=== PATIENT | male | born 1975 | race Caucasian/White ===

== ENCOUNTER → 2018-05-26 16:18 | Outpatient (CLI) | payer BC, SELFPAY ==
[2018-05-26 18:13] LABS: Anion Gap 14.1 mEq/L (5-15); Blood Urea Nitrogen 17 mg/dL (7-18); Calcium 9.6 mg/dL (8.5-10.1); Carbon Dioxide 30 mmol/L (21.0-32.0); Chloride 104 mmol/L (98-107); Creatinine,Serum 1.05 mg/dL (0.70-1.30); Estimated Glomerular Filt Rate 77 ml/min (>60); GFR (African American) 94 ML/MIN (>60); Glucose 102 mg/dL (74-106); Potassium 4.1 mmoL/L (3.5-5.1); Sodium 144 mmol/L (136-145)
== END ==
PROVIDERS: PCP Internal Medicine Adolescent Medicine; Visit Provider Internal Medicine Adolescent Medicine
DX: I10 Essential (primary) hypertension (principal)
CPT/HCPCS: 36415; 80048

== ENCOUNTER 2018-08-10 19:40 | Observation (INO) ==
--- NOTE | 2018-08-10 20:06 | Emergency Department Note ---
ED Disposition Clinical Impression: Fever Qualifiers: Encounter type: subsequent encounter Diverticulitis large intestine Qualifiers: Diverticulitis bleeding: without bleeding Disposition: Admitted as Observation Condition on Discharge: Good Referrals: Zaheer Lorenzo MD [Primary Care Provider] - Time of Disposition: 20:08 - Critical Care Critical Care Time: No Attestation: On 08/10/18, the high probability of a clinically significant, sudden or life threatening deterioration of the following system(s) required my full and direct attention, intervention and personal management. The time I documented below is in addition to time spent performing reported procedures but includes the following listed in this critical care notation. Medical Decision Making - Medical Records Medical records reviewed: Yes: I reviewed the patient's medical records. - Damaso Inquiry Pt receiving controlled substance: No Damaso was queried for this patient: No Vital Signs: 08/10/18 19:43 Temperature 101.7 F H Temperature Source Oral Pulse Rate [Right Brachial] 127 H Respiratory Rate 18 Blood Pressure [Right Arm] 133/68 Blood Pressure Mean [Right Arm] 89 Blood Pressure Source [Right Arm] Automatic Cuff Blood Pressure Position [Right Arm] Sitting 02 Sat by Pulse Oximetry 96 Oxygen Delivery Method Room Air Orders (Tests/Meds): ED MEDICATIONS Generic Name Dose Route Start Last Admin Trade Name Freq PRN Reason Stop Dose Admin Sodium Chloride 1,000 mls @ 999 mls/hr 08/10/18 20:00 Sod Chlor 0.9% 1000ml Bag IV 08/10/18 22:00 .Q1H1M ERIC Discontinued Medications Generic Name Dose Route Start Last Admin Trade Name Freq PRN Reason Stop Dose Admin Acetaminophen 1,000 mg 08/10/18 19:49 Tylenol 500mg Tablet PO 08/10/18 19:50 ONCE ONE Ondansetron HCl 4 mg 08/10/18 19:49 Zofran 4mg/2ml Vial IV 08/10/18 19:50 ONCE ONE ORDERS Category Date Time Status Complete Blood Count Auto Diff Stat Lab 08/10/18 19:48 Ordered Comprehensive Metabolic Panel Stat Lab 08/10/18 19:48 Ordered General Adult HPI - General Chief complaint: Fever Stated complaint: fever Time Seen by Provider: 08/10/18 20:02 Mode of Arrival: Family Vehicle Limitations: No Limitations Description of Symptoms (Recalled from ER Triage Doc. by RN): Pt is here for a fever after being here earlier for abd pain. States he is not in any more pain, but he took a norco 10 and motrin 400mg about an hr ago - History of Present Illness HPI narrative: evaluated by me earlier today. Diagnosis of diverticulitis without any signfiicant peritoneal findings, normal wbc, temp only 99.3 Discussed case with his pcp, decided on outpatient therapy with plans to see Dr. Bj martinez at 345 He spiked a fever at home and now returns for admission. - Related Data Home Medications Medication Instructions Recorded Confirmed aspirin 81 mg tablet,delayed 81 mg PO DAILY tab 10/07/17 08/10/18 release meloxicam 7.5 mg tablet 7.5 mg PO BID tab 10/07/17 08/10/18 Amlodipine Besylate 10 mg PO DAILY 08/10/18 08/10/18 Hydrocodone/Acetaminophen [[place] 1 each PO Q4-6H 08/10/18 08/10/18 10-325 Tablet] Lisinopril [Lisinopril 10mg Tab] 10 mg PO DAILY 08/10/18 08/10/18 levoFLOXacin [Levaquin 500mg 500 mg PO DAILY 08/10/18 08/10/18 tab] metroNIDAZOLE [Flagyl 500mg 500 mg PO Q8H 08/10/18 08/10/18 Tablet] Allergies Allergy/AdvReac Type Severity Reaction Status Date / Time Penicillins Allergy Intermediate I-ITCHING Verified 08/10/18 13:02 Pertussis Vaccines Allergy Intermediate FLUSHING Verified 08/10/18 13:02 [facility] History - Hepatitis A Screen Drug use history?: No High risk sexual behaviors?: No History of sexually transmitted infection?: No Currently employed?: No Childcare worker?: No Do you have indoor plumbing?: Yes Do you have electricity?: Yes Attestation statement:: This patient has been screened for Hepatitis A risk factors. Medical History: Reports:: Asthma Denies:: Diabetes Mellitus Type 1, Diabetes Mellitus Type 2 Other Medical History: Reports: Arthritis Laterality Cases: Bilateral: Tonsillectomy Other Surgeries: Yes: Other Amputation: No Fractures: Yes Comment: RIGHT SIDED SCROTAL EXCISION FOR HIDRADENITIS - Social History Smoking Status: Current every day smoker Tobacco Type: cigarettes # Packs/Day (cigarettes): 1 Alcohol Intake: current Alcohol Intake Frequency:: 0-2 drinks per day Substance Use Type: denies use Occupational Status: employed - Psychiatric History Expresses thoughts of harming self/others: None Suicide Plan Description: No Plan Family Hx:: Asthma, Cancer, Hyperlipidemia, Diabetes, Hypertension Comment: PROSTATE CANCER, ARTHRITIS,TB,HEART PROBLEMS,TROUBLE WITH ANESTHESIA ROS Obtained: Yes All systems reviewed & no additional complaints - Constitutional Constitutional: Reports system reviewed and no additional complaints, except as docu, Reports chills, Reports fever(s) - Eyes Eyes: Reports system reviewed and no additional complaints, except as docu, Reports change in vision - Cardiovascular Cardiovascular: Reports system reviewed and no additional complaints, except as docu, Denies chest pain, Denies chest pain at rest, Denies chest pain with activity, Denies dyspnea - Respiratory Respiratory: Yes system reviewed and no additional complaints, except as docu, No chest congestion, No cough, No non-productive cough - Gastrointestinal Gastrointestingal: Reports: system reviewed and no additional complaints, except as docu, abdominal pain, cramping. Denies: nausea, vomiting - Musculoskeletal Musculoskeletal: Reports system reviewed and no additional complaints, except as docu, Denies joint pain, Denies muscle aches, Denies neck pain - Integumentary/Breasts Skin/Breast: Reports system reviewed and no additional complaints, except as docu, Denies rash - Neurologic Neurologic: Reports system reviewed and no additional complaints, except as docu, Denies syncope, Denies tingling, Denies tremor(s) - Hematologic/Lymphatic Henatologic/Lymphatic: Reports system reviewed and no additional complaints, except as docu, Denies easy bleeding, Denies easy bruising, Denies lymphadenopathy Physical Exam - General General appearance: alert, in no apparent distress - Head Head exam: atraumatic, normocephalic, normal inspection - Eye Eye exam: Present: normal appearance, PERRL, EOMI - ENT ENT exam: Present: normal exam, normal oropharynx, mucous membranes moist, TM's normal bilaterally, normal external ear exam - Neck Neck exam: Present: normal inspection, full ROM, trachea midline. Absent: meningismus, lymphadenopathy - Chest Chest inspection: Present: normal inspection, symmetric chest wall rise. Absent: tenderness - Respiratory Respiratory exam: Present: normal lung sounds bilaterally. Absent: respiratory distress - Cardiovascular Cardiovascular exam: Present: regular rate - Abdominal Exam Abdominal exam: Present: soft, tenderness. Absent: distention, rigidity, mass - Extremities Exam Extremities exam: Present: normal inspection, full ROM, normal capillary refill. Absent: calf tenderness - Back Exam Back exam: Present: normal inspection. Absent: tenderness - Neurological Exam Neurological exam: Present: alert, oriented X3 - Psychiatric Psychiatric exam: Present: normal affect, normal mood - Skin Skin exam: Present: warm, dry, intact, normal color - Lymphatic Lymphatic Findings: no adenopathy
[2018-08-10 20:15] LABS: Basophils % 0.3 % (0.1-2.0); Eosinophils # 0.1 K/mm3 (0.0-0.4); Mean Corpuscular Volume 97.7 fl (80-94); Platelet Count 151 K/mm3 (142-424)
[2018-08-10 20:21] LABS: Eosinophils % 0.6 % (0.1-12.0); Hematocrit 42.8 % (42.0-52.0); Lymphocytes % 9.3 % (10-50); Mean Corpuscular HGB Conc 34.1 g/dL (31.8-35.4); Mean Corpuscular Hemoglobin 33.4 pg (27.0-31.2); Mean Platelet Volume 7.9 fl (7.4-10.4); Monocytes # 0.8 K/mm3 (0.1-1.0); Monocytes % 7.6 % (1.7-9.3); Neutrophils % 82.1 % (37.0-80.0); Red Blood Count 4.38 M/mm3 (4.60-6.20)
[2018-08-10 20:24] LABS: Hemoglobin 14.6 g/dL (14.1-18.0)
[2018-08-10 20:27] LABS: Albumin Level 3.8 gm/dL (3.4-5.0); Albumin/Globulin Ratio 1.3 (1.1-1.8); Anion Gap 14.8 mEq/L (5-15); Bilirubin,Total 0.8 mg/dL (0.2-1.0); Globulin 2.9 gm/dl (1.3-3.2); Potassium 3.8 mmoL/L (3.5-5.1); Total Protein,Serum 6.7 gm/dL (6.4-8.2)
[2018-08-10 20:44] LABS: Calcium 8.4 mg/dL (8.5-10.1)
--- NOTE | 2018-08-11 07:33 | Pharmacy Consult Notes ---
[facility] Pharmacy VTE Monitoring - Patient Demographics Admission date: 08/10/18 Report Date: 08/11/18 Time: 07:33 Allergies/Adverse Reactions: Patient Allergies Penicillins Allergy (Intermediate, Verified 08/10/18 13:02) I-ITCHING Pertussis Vaccines Allergy (Intermediate, Verified 08/10/18 13:02) FLUSHING Height: 1.78 m Weight: 103.646 kg Patient Problems: Current Active Problems Diverticulitis large intestine (Acute) Fever (Acute) - VTE Risk Labs: VTE Related Lab Results Hgb 14.6 g/dL (14.1-18.0) D 08/10/18 20:07 Hct 42.8 % (42.0-52.0) 08/10/18 20:07 Plt Count 151 K/mm3 (142-424) 08/10/18 20:07 BUN 14 mg/dL (7-18) 08/10/18 20:07 Creatinine 1.22 mg/dL (0.70-1.30) 08/10/18 20:07 Estimated Creat Clear 117 mL/min (50-200) 08/10/18 20:07 Was VTE Risk Assessment Performed: Yes VTE Score: 5 VTE Risk Level: Low Risk - Prophylaxis VTE Prophylaxis Ordered?: Yes Types of VTE Prophylaxis: TEDS Knee High Location of Applied Device: Bilateral Lower Extremeties - VTE Diagnosis Confirmed Treatment or plan recommended: Continue Current Treatment
[2018-08-11 07:39] LABS: Anion Gap 12.8 mEq/L (5-15); Basophils % 0.2 % (0.1-2.0); Calcium 8.8 mg/dL (8.5-10.1); Eosinophils # 0.1 K/mm3 (0.0-0.4); Eosinophils % 0.5 % (0.1-12.0); Hemoglobin 14.2 g/dL (14.1-18.0); Lymphocytes % 9.7 % (10-50); Mean Corpuscular Hemoglobin 32.8 pg (27.0-31.2); Mean Corpuscular Volume 99.5 fl (80-94); Mean Platelet Volume 8.1 fl (7.4-10.4); Monocytes # 0.7 K/mm3 (0.1-1.0); Monocytes % 6.6 % (1.7-9.3); Neutrophils # 8.6 K/mm3 (1.8-7.8); Platelet Count 138 K/mm3 (142-424); Potassium 3.8 mmoL/L (3.5-5.1); Red Blood Count 4.32 M/mm3 (4.60-6.20); White Blood Count 10.4 K/mm3 (4.8-10.8)
--- NOTE | 2018-08-11 08:37 | History & Physical Report ---
*Admission Date: 08/10/18 *Chief complaint: acute onset abdominal pain *History of present illness: Mr. Jacobo is a 42-year-old man with history of hypertension who presented to the ER yesterday with acute onset of abdominal pain in the right lower quadrant. He was initially assessed, found to have diverticulitis, initiated on oral antibiotics and discharged home. Upon returning home he developed fever causing him to return back to the ER. He was at this time that he was admitted due to his clinical status change. He reports yesterday he got up to go the bathroom and noticed acute worsening of pain in the right side of his abdomen, he was concerned for a kidney stone or something else. In the ER he was scanned with identification of an inflamed diverticulum. Also noted to be tachycardic and febrile. Stated he had had a looser stool but no umu diarrhea. No vomiting. Denies shortness of breath, chest pain, palpitations, blood in stools. Has never had an episode of this before. Made n.p.o. on admission, has had bowel rest all night. [facility] History I have reviewed the patient's past medical history: Yes Medical History: Reports:: Asthma, Hyperlipidemia, Hypertension, MRSA Denies:: Cancer, Diabetes Mellitus Type 1, Diabetes Mellitus Type 2 Have you ever received a pneumonia vaccine?: No Have you received a flu vaccine this season?: No Other Medical History: Reports: Arthritis Laterality Cases: Bilateral: Tonsillectomy Other Surgeries: Yes: Hernia Repair, Other (Scrotal surg x4) Amputation: No Fractures: Yes - *Social History Educational Level: Completed College Smoking Status: Current every day smoker Tobacco Type: cigarettes # Packs/Day (cigarettes): 1 Alcohol Intake: current Alcohol Intake Frequency:: 0-2 drinks per day Substance Use Type: denies use Occupational Status: employed Housing: house Household Members: spouse, children Travel in the last 8 weeks: None - Psychiatric History Expresses thoughts of harming self/others: None Suicide Plan Description: No Plan *Family Hx:: Asthma, Cancer, Diabetes, Hyperlipidemia, Hypertension, Stroke Review of Systems - Review of Systems Review of systems:: pertinent systems reviewed and negative unless documented below - *Neurologic Denies fainting, Denies tingling, Denies tremor(s) Meds Home Medications Medication Instructions Recorded Confirmed Type aspirin 81 mg tablet,delayed 81 mg PO DAILY tab 10/07/17 08/10/18 History release meloxicam 7.5 mg tablet 7.5 mg PO BID tab 10/07/17 08/10/18 History Amlodipine Besylate 10 mg PO DAILY 08/10/18 08/10/18 History Lisinopril [Lisinopril 10mg Tab] 10 mg PO DAILY 08/10/18 08/10/18 History levoFLOXacin [Levaquin 500mg 500 mg PO DAILY 08/10/18 08/10/18 History tab] metroNIDAZOLE [Flagyl 500mg 500 mg PO Q8H 08/10/18 08/10/18 History Tablet] Varenicline Tartrate [Chantix 1mg 1 mg PO BID 08/11/18 08/11/18 History tablet] Allergies Allergy/AdvReac Type Severity Reaction Status Date / Time Penicillins Allergy Intermediate I-ITCHING Verified 08/10/18 13:02 Pertussis Vaccines Allergy Intermediate FLUSHING Verified 08/10/18 13:02 Exam Vital signs and Labs for Last 24 Hours: Temp Pulse Resp BP Pulse Ox 100.3 F H 93 H 18 126/60 96 08/11/18 07:37 08/11/18 07:37 08/11/18 07:37 08/11/18 07:37 08/11/18 07:37 Laboratory Results - last 24 hr 08/10/18 20:07: WBC 11.0 H, RBC 4.38 L, Hgb 14.6 D, Hct 42.8, MCV 97.7 H, MCH 33.4 H, MCHC 34.1, RDW 13.0, Plt Count 151, MPV 7.9, Neut % (Auto) 82.1 H, Lymph % (Auto) 9.3 L, [place] % (Auto) 7.6, Eos % (Auto) 0.6, Baso % (Auto) 0.3, Neut # (Auto) 9.0 H, Lymph # (Auto) 1.0, [place] # (Auto) 0.8, Eos # (Auto) 0.1, Baso # (Auto) 0.0 08/10/18 20:07: Sodium 136, Potassium 3.8, Chloride 101, Carbon Dioxide 24, Anion Gap 14.8, BUN 14, Creatinine 1.22, Estimated Creat Clear 117, Estimated GFR 65, Est GFR ( Amer) 79, Glucose 135 H D, Calcium 8.4 L D, Total Bilirubin 0.8, AST 16 D, ALT 38, Alkaline Phosphatase 64, Total Protein 6.7, Albumin 3.8 D, Globulin 2.9, Albumin/Globulin Ratio 1.3 08/11/18 07:00: WBC 10.4, RBC 4.32 L, Hgb 14.2, Hct 43.0, MCV 99.5 H, MCH 32.8 H , MCHC 33.0, RDW 13.0, Plt Count 138 L, MPV 8.1, Neut % (Auto) 83.0 H, Lymph % (Auto) 9.7 L, [place] % (Auto) 6.6, Eos % (Auto) 0.5, Baso % (Auto) 0.2, Neut # (Auto) 8.6 H, Lymph # (Auto) 1.0, [place] # (Auto) 0.7, Eos # (Auto) 0.1, Baso # (Auto) 0.0 08/11/18 07:00: Sodium 138, Potassium 3.8, Chloride 103, Carbon Dioxide 26, Anion Gap 12.8, BUN 11, Creatinine 1.00, Estimated Creat Clear 141, Estimated GFR 82, Est GFR ( Amer) 99 D, Glucose 108 H, Calcium 8.8 I & O for Last 24 hours: Intake & Output 08/08/18 08/09/18 08/10/18 08/11/18 23:59 23:59 23:59 23:59 Intake Total 1538 / 1538 Output Total 1550 / 1550 Balance - Weight 103.646 kg 103.646 kg - Constitutional mild distress, obese - *Routine HEENT Exam Head: Present: normocephalic, atraumatic Eye: Present: EOMI, PERRL ENT: Present: mucous membranes moist - *Routine Neck Exam Present: supple. Absent: lymphadenopathy - *Routine Respiratory Exam Present: CTA bilaterally. Absent: rhonchi, wheezes, crackles - *Routine Cardiovascular Exam Present: RRR, Normal S1, Normal S2. Absent: murmur - *Routine Abdominal Exam Present: soft, tenderness (Most prominent right lower abdomen, no rebound). Absent: firm - *Routine Rectal Exam Patient deferred: visual exam - *Routine Exam Patient deferred: penile exam - *Routine Extremities Exam Absent: cyanosis, clubbing, edema - *Routine Skin Exam Present: intact. Absent: cyanosis, erythema - *Routine Neurological Exam Present: alert, oriented X3. Absent: altered mental status Assessment and Plan (1) Hypertension Current visit: Yes Status: Chronic Qualifiers: Hypertension type: essential hypertension Qualified Code(s): I10 - Essential (primary) hypertension Category: Medical Code(s): I10 - Essential (primary) hypertension Continue home medications (2) Diverticulitis large intestine Current visit: Yes Status: Acute Qualifiers: Diverticulitis bleeding: without bleeding Diverticulitis complication: without perforation or abscess Qualified Code(s): K57.32 - Diverticulitis of large intestine without perforation or abscess without bleeding Category: Medical Code(s): K57.32 - Diverticulitis of large intestine without perforation or abscess without bleeding Initiated on IV antibiotics and bowel rest -Tolerating Levaquin and Flagyl -Advance diet today to clear liquid this morning with plan for full liquid by lunch if tolerates correct -If able to maintain p.o. hydration and tolerate p.o. antibiotics likely discharge home in the morning (3) Fever Current visit: Yes Status: Acute Qualifiers: Encounter type: subsequent encounter Category: Medical Code(s): R50.9 - Fever, unspecified Secondary to infection, defervesced overnight
--- NOTE | 2018-08-12 08:25 | Discharge Summary ---
General - General Admission date:: 08/10/18 Discharge date: 08/12/18 HPI HPI: Mr. Jacobo is a 42-year-old man with history of hypertension who presented to the ER yesterday with acute onset of abdominal pain in the right lower quadrant. He was initially assessed, found to have diverticulitis, initiated on oral antibiotics and discharged home. Upon returning home he developed fever causing him to return back to the ER. He was at this time that he was admitted due to his clinical status change. He reports yesterday he got up to go the bathroom and noticed acute worsening of pain in the right side of his abdomen, he was concerned for a kidney stone or something else. In the ER he was scanned with identification of an inflamed diverticulum. Also noted to be tachycardic and febrile. Stated he had had a looser stool but no umu diarrhea. No vomiting. Denies shortness of breath, chest pain, palpitations, blood in stools. Has never had an episode of this before. Made n.p.o. on admission, has had bowel rest all night. Hospital Course Hospital Course: Was admitted, placed on intravenous levofloxacin and metronidazole, tolerated this well, and improved very nicely. Diet yesterday and tolerated oral feeding well with minimal pain. This morning was able to eat a pork chop and hashbrowns. No vomiting. No abdominal pain. Plan will be to discharge home. He has 6-day follow-up scheduled he previous prescription for quinolone and metronidazole antibiotic from his ER visit before he was admitted, and he will begin taking these as directed. We discussed a low residue diet. Objective Vital signs: Temp Pulse Resp BP Pulse Ox 100.2 F H 105 H 18 109/82 L 94 L 08/12/18 07:32 08/12/18 07:32 08/12/18 07:32 08/12/18 07:32 08/12/18 07:32 Narrative: Patient is alert. Pleasant. Talkative. Oriented x3. Cardiopulmonary exam unremarkable. Heart rate regular. Good distal perfusion. Abdomen soft, nontender and normal bowel sounds. No edema or clubbing. DS: Diagnosis - Discharge Diagnosis (1) Hypertension Status: Chronic (2) Diverticulitis large intestine Status: Acute (3) Fever Status: Resolved Discharge Plan - Patient Discharge Instructions ACTIVITY: Limited activity DIET: other (Residue diet) Patient Instructions: DI for Diverticulitis - Follow up Plan Follow up with: Zaheer Lorenzo MD [Primary Care Provider] - 08/18/18 Disposition: Home, Self-Halfway Medications: Home Medications Medication Instructions Recorded Confirmed Type aspirin 81 mg tablet,delayed 81 mg PO DAILY tab 10/07/17 08/10/18 History release meloxicam 7.5 mg tablet 7.5 mg PO BID tab 10/07/17 08/10/18 History Amlodipine Besylate 10 mg PO DAILY 08/10/18 08/10/18 History Lisinopril [Lisinopril 10mg Tab] 10 mg PO DAILY 08/10/18 08/10/18 History levoFLOXacin [Levaquin 500mg 500 mg PO DAILY 08/10/18 08/10/18 History tab] metroNIDAZOLE [Flagyl 500mg 500 mg PO Q8H 08/10/18 08/10/18 History Tablet] Varenicline Tartrate [Chantix 1mg 1 mg PO BID 08/11/18 08/11/18 History tablet] Prescriptions/Medication Reconciliation: Continue meloxicam 7.5 mg tablet 7.5 mg PO BID tab aspirin 81 mg tablet,delayed release 81 mg PO DAILY tab metroNIDAZOLE [Flagyl 500mg Tablet] 500 mg PO Q8H levoFLOXacin [Levaquin 500mg tab] 500 mg PO DAILY Amlodipine Besylate 10 mg PO DAILY Lisinopril [Lisinopril 10mg Tab] 10 mg PO DAILY Varenicline Tartrate [Chantix 1mg tablet] 1 mg PO BID
== END 2018-08-12 09:34 | disposition home or self-care (01) | DRG 392 ==
LOC: 2ND 19:40 → ER 19:40 → INTOOBSV 21:00 → OBSVTOIN 21:00 → 2ND 21:01
PROVIDERS: ADMIT Family Medicine; ATTEND Internal Medicine Adolescent Medicine
CPT/HCPCS: 36415; 80048; 80053; 85025; 96365; 99284; G0378; J1956; J2405

== ENCOUNTER 2020-06-26 09:10 | Emergency (ER) | payer BC, SELFPAY ==
[2020-06-26 09:10] VITALS: BP 131/86; PULSE 95; RESP 14; TEMP 37.1; O2SAT 98; BMI 30.8
--- NOTE | 2020-06-26 09:37 | HMH.EDUTC ---
[facility] [place] Disposition Clinical Impression: Polycythemia, Viral syndrome Disposition: Home, Self-Care Condition on Discharge: Good Instructions: DI for Viral Syndrome, DI for Primary Polycythemia Additional Instructions: Follow up with your primary care doctor regarding your elevated hemoglobin. You need to quit smoking. You should take a baby aspirin until you see your doctor, then follow his recommendations from there. Take the zofran for nausea. GO TO THE ER FOR ANY WORSENING SYMPTOMS OR CONCERNS, ESPECIALLY ANY WORSENING ABDOMINAL PAIN, FEVER, CHILL,ETC. Prescriptions: Ondansetron [Zofran 4mg ODT] 4 mg PO Q8HP PRN #12 tab.rapdis PRN Reason: Nausea Transmission Status: Received by [facility] Referrals: Hank Aguila MD [Primary Care Provider] - Forms: Work/School Release Time of Disposition: 11:00 Medical Decision Making - Medical Records Medical records reviewed: No: I reviewed the patient's medical records. - Damaso Inquiry Pt receiving controlled substance: No Vital Signs: 06/26/20 09:10 06/26/20 11:01 Temperature 98.7 F 98.7 F Temperature Source Oral Pulse Rate 95 H Pulse Rate [Right Brachial] 95 H Respiratory Rate 14 14 Blood Pressure 131/86 Blood Pressure [Right Arm] 131/86 Blood Pressure Mean [Right Arm] 101 Blood Pressure Source [Right Arm] Automatic Cuff Blood Pressure Position [Right Arm] Sitting 02 Sat by Pulse Oximetry 98 Oxygen Delivery Method Room Air - Lab Data Lab Results 06/26/20 10:10: WBC 10.5, RBC 5.60, Hgb 19.3 H*, Hct 55.4 H, MCV 99.0 H, MCH 34.6 H, MCHC 34.9, RDW 13.5, Plt Count 166, MPV 8.5, Neut % (Auto) 76.6, Lymph % (Auto) 14.8, [place] % (Auto) 6.3, Eos % (Auto) 1.5, Baso % (Auto) 0.7, Neut # (Auto) 8.0 H, Lymph # (Auto) 1.6, [place] # (Auto) 0.7, Eos # (Auto) 0.2, Baso # (Auto) 0.1 06/26/20 10:10: Sodium 137, Potassium 4.3, Chloride 102, Carbon Dioxide 24, Anion Gap 15.3 H, BUN 13, Creatinine 0.90, Estimated Creat Clear 144, Estimated GFR 92, Est GFR ( Amer) 111, Glucose 110 H, Calcium 9.8, Total Bilirubin 0.9, AST 41, ALT 30, Alkaline Phosphatase 69, Total Protein 8.0, Albumin 5.1 H, Globulin 2.9, Albumin/Globulin Ratio 1.8, Amylase 75, Lipase 146 Result diagrams: 06/26/20 10:10 06/26/20 10:10 Orders (Tests/Meds): ORDERS Category Date Time Status Covid-19 Nasal PCR Sendout Wan Routine Lab 06/26/20 09:26 Received [facility] [place] HPI - General Stated complaint: stomach pain Time Seen by Provider: 06/26/20 09:37 Mode of Arrival: Ambulatory Source of Information: Patient Limitations: No Limitations Description of Symptoms (Recalled from Triage Doc. by RN): PATIENT C/O NAUSEA AND DIARRHEA THAT STARTED YESTERDAY. HE BELIEVES THAT HE ATE A BAD PORKCHOP HEENT Symptoms (Recalled from RN notes): No Resp Symptoms (Recalled from RN notes): No Skin Symptoms (Recalled from RN notes): No MS Symptoms (Recalled from RN notes): No Functional Status (Recalled from RN notes): WNL - History of Present Illness Provider Complaint: He c/o gi upset since yesterday. He has had nausea, abdominal cramping, and diarrhea. He denies any fever, chills, body aches. He thinks that he might have food poisoning, but other people at the same meals that he has and he is the only one that is sick. - Related Data Home Medications Medication Instructions Recorded Confirmed aspirin 81 mg tablet,delayed 81 mg PO DAILY tab 10/07/17 12/13/19 release calcium citrate 315 mg 1 tab PO DAILY 12/22/18 12/13/19 calcium-vitamin D3 6.25 mcg (250 unit) tablet omega-3 fatty acids 1,000 mg 1,000 mg PO DAILY 12/22/18 12/13/19 capsule hydroxychloroquine 200 mg tablet 200 mg PO BID 04/27/19 12/13/19 rifampin 300 mg capsule 300 mg PO DAILY 04/27/19 12/13/19 Previous Rx's Medication Instructions Recorded Ondansetron [Zofran 4mg ODT] 4 mg PO Q8HP PRN #12 tab.rapdis 06/26/20 Allergies Allergy/AdvReac Type Severity Reaction Status Date / Ti
[2020-06-26 10:33] LABS: Basophils # 0.1 K/mm3 (0-0.2); Basophils % 0.7 % (0.1-2.0); Eosinophils # 0.2 K/mm3 (0.0-0.4); Eosinophils % 1.5 % (0.1-12.0); Hematocrit 55.4 % (42.0-52.0); Lymphocytes # 1.6 K/mm3 (0.7-4.5); Lymphocytes % 14.8 % (10-50); Mean Corpuscular HGB Conc 34.9 g/dL (31.8-35.4); Mean Corpuscular Hemoglobin 34.6 pg (27.0-31.2); Mean Platelet Volume 8.5 fl (7.4-10.4); Monocytes # 0.7 K/mm3 (0.1-1.0); Monocytes % 6.3 % (1.7-9.3); Neutrophils % 76.6 % (37.0-80.0); Platelet Count 166 K/mm3 (142-424); Red Cell Distribution Width 13.5 % (11.5-17.5); White Blood Count 10.5 K/mm3 (4.8-10.8)
[2020-06-26 10:34] LABS: Chloride 102 mmol/L (98-107); Potassium 4.3 mmoL/L (3.5-5.1); Sodium 137 mmol/L (136-145)
[2020-06-26 10:37] LABS: Alanine Aminotransferase 30 U/L (12-78); Alkaline Phosphatase 69 U/L (38-126); Amylase 75 U/L (30-110); Anion Gap 15.3 mEq/L (5-15); Aspartate Amino Transferase 41 U/L (17-59); Bilirubin,Total 0.9 mg/dl (0.2-1.3); Blood Urea Nitrogen 13 mg/dl (9-20); Calcium 9.8 mg/dl (8.4-10.2); Carbon Dioxide 24 mmol/L (22.0-30.0); Creatinine Clearance Estimated 144 mL/min (50-200); Estimated Glomerular Filt Rate 92 ml/min (>60); GFR (African American) 111 ML/MIN (>60); Glucose 110 mg/dl (74-100); Lipase 146 U/L (23-300)
[2020-06-26 10:38] LABS: Albumin Level 5.1 g/dl (3.5-5.0); Albumin/Globulin Ratio 1.8 (1.1-1.8); Globulin 2.9 g/dL (1.3-3.2)
[2020-06-26 10:47] LABS: Hemoglobin 19.3 g/dL (14.1-18.0)
[2020-06-26 11:01] VITALS: BP 131/86; PULSE 95; RESP 14; TEMP 37.1; O2SAT 98
[2020-06-28 09:08] LABS: Covid-19 Nasal PCR Sendout Lex NOT DETECTED
== END 2020-06-26 11:07 | disposition home or self-care (01) ==
PROVIDERS: Emergency Provider Nurse Practitioner Family; PCP Internal Medicine Adolescent Medicine
DX: Z20.828 Contact with and (suspected) exposure to other viral communicable diseases (principal); B34.9 Viral infection, unspecified; D45 Polycythemia vera; E78.5 Hyperlipidemia, unspecified; I10 Essential (primary) hypertension; Z88.0 Allergy status to penicillin; Z88.7 Allergy status to serum and vaccine; Z79.899 Other long term (current) drug therapy
CPT/HCPCS: 80053; 82150; 83690; 85025; 99202; U0004

== ENCOUNTER 2020-07-12 16:14 | Emergency (ER) | payer BC, SELFPAY ==
[2020-07-12 16:20] VITALS: BP 132/82; PULSE 87; RESP 18; TEMP 36.6; O2SAT 99; BMI 31.5
--- NOTE | 2020-07-12 16:26 | HMH.EDUTC ---
[facility] [place] Disposition Clinical Impression: Injury of toenail of right foot Qualifiers: Encounter type: initial encounter Qualified Code(s): S99.921A - Unspecified injury of right foot, initial encounter Toenail avulsion Qualifiers: Encounter type: initial encounter Qualified Code(s): S91.209A - Unspecified open wound of unspecified toe(s) with damage to nail, initial encounter Disposition: Home, Self-Care Condition on Discharge: Good Instructions: DI for Nail Avulsion Injury, DI for Nail Bed Injury Additional Instructions: Keep area clean and dry, soak daily as advised by podiatry After soaking, apply neosporin to nailbed and then Non-stick loose dressing to area and monitor for worsening signs of infection such as redness, swelling drainage etc *Oral antibiotics as prescribed Follow up with Family Doctor if no improvement or any worsening of symptoms Follow up with Podiatry for further evaluation and treatment of toenail/foot problems Return if needed Straight to ER if any life threatening symptoms Prescriptions: clindamycin HCL [Cleocin HCl] 300 mg PO TID 10 Days #30 cap Transmission Status: Pending to [facility] Referrals: Hank Aguila MD [Primary Care Provider] - As needed Rhea Varela DPM [Staff Physician] - Violeta Keane APRN [Nurse Practitioner] - Time of Disposition: 17:24 Medical Decision Making - Damaso Inquiry Pt receiving controlled substance: No Damaso was queried for this patient: No Vital Signs: 07/12/20 16:20 Temperature 97.8 F Temperature Source Oral Pulse Rate [Right Brachial] 87 Respiratory Rate 18 Blood Pressure [Right Arm] 132/82 Blood Pressure Mean [Right Arm] 98 Blood Pressure Source [Right Arm] Automatic Cuff Blood Pressure Position [Right Arm] Sitting 02 Sat by Pulse Oximetry 99 Oxygen Delivery Method Room Air - Physician Consults Physician Consulted: Violeta Keane Reason -: Podiatry Eval/Care Comment/Response: Spoke with Violeta Keane podiatry about patient and toenail and she advised that she would come to the [facility] and observe the toe and nail Medical Decision Narrative: Violeta Keane from Podiatry came to [facility] to see patient she observed the toenail and recommended removal She performed digital block and removed toenail on right great toe and patient tolerated well, After removal she applied bandage recommended place patient on Clindamycin 300mg TID for 10 days and office would call patient with follow up appointment She informed him of soaking foot daily starting tomorrow and applying neosporin to nailbed area and bandage and patient verbalized understanding [facility] [place] HPI - General Stated complaint: Nail on Rt Big Toe Loose Time Seen by Provider: 07/12/20 16:26 Mode of Arrival: Ambulatory Source of Information: Patient Limitations: No Limitations Description of Symptoms (Recalled from Triage Doc. by RN): PATIENT STATES HIS RIGHT GREAT TOENAIL IS COMING OFF, NO KNOWN INJURY HEENT Symptoms (Recalled from RN notes): No Resp Symptoms (Recalled from RN notes): No Skin Symptoms (Recalled from RN notes): No MS Symptoms (Recalled from RN notes): No Functional Status (Recalled from RN notes): WNL - History of Present Illness Provider Complaint: Patient state that he has been having problems with his toenail on his right foot for awhile State that he is not sure if he got it caught on something last night in his sleep or not but when he work up he noticed some blood on his toe and his nail looked like it was about to fall off State that he went on about his day and this evening it still looked like that so he came in to get it checked - Related Data Home Medications Medication Instructions Recorded Confirmed aspirin 81 mg tablet,delayed 81 mg PO DAILY tab 10/07/17 12/13/19 release calcium citrate 315 mg 1 tab PO DAILY 12/22/18 12/13/19 calcium-vitamin D3 6.25 mcg (250 unit) tablet omega-3 fatty acids 1,000 mg 1,000 mg PO DAILY 12/22/18 12/13/19 capsule
--- NOTE | 2020-07-12 16:56 | PC.NURSE ---
TOE SOAKED IN HIBICLENSE AND SALINE. NEOSPORIN, NONADHERENT DRESSING AND DRY GAUZE WRAP APPLIED TO PATIENT'S TOE AT THIS TIME
[2020-07-12 17:24] VITALS: BP 132/82; PULSE 87; RESP 18; TEMP 36.6; O2SAT 99
== END 2020-07-12 17:25 | disposition home or self-care (01) ==
PROVIDERS: Emergency Provider Nurse Practitioner; PCP Internal Medicine Adolescent Medicine
DX: S91.211A Laceration without foreign body of right great toe with damage to nail, initial encounter (principal); W22.8XXA Striking against or struck by other objects, initial encounter; Y92.019 Unspecified place in single-family (private) house as the place of occurrence of the external cause; E78.5 Hyperlipidemia, unspecified; I10 Essential (primary) hypertension; F17.210 Nicotine dependence, cigarettes, uncomplicated; Z79.899 Other long term (current) drug therapy; Z88.0 Allergy status to penicillin; Z88.7 Allergy status to serum and vaccine
CPT/HCPCS: 11730; 99201

== ENCOUNTER → 2020-11-01 08:47 | Outpatient (CLI) | payer BC, SELFPAY ==
[2020-11-01 09:12] LABS: Basophils % 0.7 % (0.1-2.0); Eosinophils # 0.2 K/mm3 (0.0-0.4); Eosinophils % 3.8 % (0.1-12.0); Hematocrit 50.4 % (42.0-52.0); Lymphocytes # 1.6 K/mm3 (0.7-4.5); Lymphocytes % 27.1 % (10-50); Mean Corpuscular HGB Conc 33.7 g/dL (31.8-35.4); Mean Corpuscular Hemoglobin 33.6 pg (27.0-31.2); Mean Corpuscular Volume 99.7 fl (80-94); Mean Platelet Volume 8.2 fl (7.4-10.4); Monocytes # 0.5 K/mm3 (0.1-1.0); Monocytes % 7.9 % (1.7-9.3); Neutrophils # 3.6 K/mm3 (1.8-7.8); Neutrophils % 60.5 % (37.0-80.0); Platelet Count 158 K/mm3 (142-424); Red Blood Count 5.05 M/mm3 (4.60-6.20); Red Cell Distribution Width 13.2 % (11.5-17.5)
[2020-11-01 15:20] LABS: Chloride 106 mmol/L (98-107)
[2020-11-01 15:21] LABS: Potassium 4.7 mmoL/L (3.5-5.1); Sodium 140 mmol/L (136-145)
[2020-11-01 15:23] LABS: Alanine Aminotransferase 22 U/L (12-78); Albumin Level 4.6 g/dl (3.5-5.0); Albumin/Globulin Ratio 1.9 (1.1-1.8); Alkaline Phosphatase 60 U/L (38-126); Anion Gap 11.7 mEq/L (5-15); Aspartate Amino Transferase 30 U/L (17-59); Bilirubin,Total 0.5 mg/dl (0.2-1.3); Blood Urea Nitrogen 12 mg/dl (9-20); Carbon Dioxide 27 mmol/L (22.0-30.0); Cholesterol 209 mg/dl (140-200); Estimated Glomerular Filt Rate 91 ml/min (>60); GFR (African American) 110 ML/MIN (>60); Globulin 2.4 g/dL (1.3-3.2); Triglycerides 189 mg/dl (30-150); VLDL Cholesterol 38 mg/dL (0-40)
[2020-11-01 15:24] LABS: Calcium 9.7 mg/dl (8.4-10.2); Glucose 108 mg/dl (74-100); HDL Cholesterol 42 mg/dl (40-60)
== END ==
PROVIDERS: Visit Provider Internal Medicine Adolescent Medicine
DX: I10 Essential (primary) hypertension (principal); E78.5 Hyperlipidemia, unspecified
CPT/HCPCS: 36415; 80053; 80061; 85025

== ENCOUNTER 2021-09-27 10:53 | Emergency (ER) | payer BC, SELFPAY ==
[2021-09-27 11:04] VITALS: BP 153/84; PULSE 101; RESP 14; TEMP 37.1; O2SAT 97; BMI 32.3
--- NOTE | 2021-09-27 11:16 | HMH.EDUTC ---
[facility] [place] Disposition Clinical Impression: COVID-19 Disposition: Home, Self-Care Condition on Discharge: Good Instructions: DI for COVID-19 (Suspected or Confirmed ), Preventing the Spread of Coronavirus Discharge Instructions Additional Instructions: Drink plenty of fluids. Take tylenol or ibuprofen for pain or fever. Take the medications as directed. Follow up with your regular doctor. GO TO THE ER FOR ANY WORSENING SYMPTOMS Quarantine until you know the results of your covid-19 test. Notify your school or workplace of your results and follow their instructions regarding return to work/school. Prescriptions: Promethazine/Dextromethorphan [Promethazine-Dm Syrup] 5 ml PO Q6HP PRN #240 ml PRN Reason: Cough Transmission Status: Received by [id number] Ondansetron [Zofran 4mg ODT] 4 mg PO Q8HP PRN #20 tab PRN Reason: Nausea Transmission Status: Received by [id number] Referrals: Hank Aguila MD [Primary Care Provider] - Forms: Work/School Release Time of Disposition: 11:53 Medical Decision Making - Medical Records Medical records reviewed: No: I reviewed the patient's medical records. - Damaso Inquiry Pt receiving controlled substance: No Vital Signs: 09/27/21 11:04 09/27/21 12:07 Temperature 98.7 F 98.7 F Temperature Source Oral Pulse Rate 101 H Pulse Rate [Left] 101 H Respiratory Rate 14 14 Blood Pressure 153/84 H Blood Pressure [Right Arm] 153/84 H Blood Pressure Mean [Right Arm] 107 02 Sat by Pulse Oximetry 97 - Lab Data Lab results reviewed: Yes: I reviewed the patient's lab results. [facility] [place] HPI - General Stated complaint: covid test, fever Time Seen by Provider: 09/27/21 11:16 Mode of Arrival: Ambulatory Source of Information: Patient Limitations: No Limitations Description of Symptoms (Recalled from Triage Doc. by RN): pt states he had a + at home covid test. pt c/o a fever. needs an official +. HEENT Symptoms (Recalled from RN notes): No Resp Symptoms (Recalled from RN notes): No Skin Symptoms (Recalled from RN notes): No MS Symptoms (Recalled from RN notes): No Functional Status (Recalled from RN notes): wnl - History of Present Illness Provider Complaint: He had a postiive covid-19 test at home. He needs a pcr test to confirm this for his work. - Related Data Home Medications Medication Instructions Recorded Confirmed aspirin 81 mg tablet,delayed 81 mg PO DAILY tab 10/07/17 07/24/20 release calcium citrate 315 mg 1 tab PO DAILY 12/22/18 07/24/20 calcium-vitamin D3 6.25 mcg (250 unit) tablet omega-3 fatty acids 1,000 mg 1,000 mg PO DAILY 12/22/18 07/24/20 capsule hydroxychloroquine 200 mg tablet 200 mg PO BID 04/27/19 07/24/20 rifampin 300 mg capsule 300 mg PO DAILY 04/27/19 07/24/20 Previous Rx's Medication Instructions Recorded Ondansetron [Zofran 4mg ODT] 4 mg PO Q8HP PRN #12 tab.rapdis 06/26/20 clindamycin HCL [Cleocin HCl] 300 mg PO TID 10 Days #30 cap 07/12/20 ciclopirox 0.77 % topical gel 1 applic TOPICAL ONCE 90 Days #30 g 07/24/20 Ondansetron [Zofran 4mg ODT] 4 mg PO Q8HP PRN #20 tab 09/27/21 Promethazine/Dextromethorphan 5 ml PO Q6HP PRN #240 ml 09/27/21 [Promethazine-Dm Syrup] Allergies Allergy/AdvReac Type Severity Reaction Status Date / Time Penicillins Allergy Intermediate I-ITCHING Verified 07/24/20 11:08 Pertussis Vaccines Allergy Intermediate FLUSHING Verified 07/24/20 11:08 aspirin Allergy Verified 07/24/20 11:08 - Worker's Comp Is this a Worker's Comp case?: No [facility] History - Hepatitis A Screen Drug use history?: No High risk sexual behaviors?: No History of sexually transmitted infection?: No Currently employed?: No Childcare worker?: No Do you have indoor plumbing?: Yes Do you have electricity?: Yes Attestation statement:: This patient has been screened for Hepatitis A risk factors. I have reviewed the patient's past medical history: Yes Medical H
[2021-09-27 12:07] VITALS: BP 153/84; PULSE 101; RESP 14; TEMP 37.1
== END 2021-09-27 12:07 | disposition home or self-care (01) ==
PROVIDERS: Emergency Provider Nurse Practitioner Family; PCP Internal Medicine Adolescent Medicine
DX: U07.1 COVID-19 (principal); I10 Essential (primary) hypertension; E78.5 Hyperlipidemia, unspecified; M19.90 Unspecified osteoarthritis, unspecified site; J45.909 Unspecified asthma, uncomplicated; F17.210 Nicotine dependence, cigarettes, uncomplicated; Z79.82 Long term (current) use of aspirin; Z79.899 Other long term (current) drug therapy; Z88.0 Allergy status to penicillin; Z88.6 Allergy status to analgesic agent; Z88.8 Allergy status to other drugs, medicaments and biological substances; Z86.14 Personal history of Methicillin resistant Staphylococcus aureus infection; Z82.49 Family history of ischemic heart disease and other diseases of the circulatory system; Z80.42 Family history of malignant neoplasm of prostate; Z83.438 Family history of other disorder of lipoprotein metabolism and other lipidemia; Z82.61 Family history of arthritis
CPT/HCPCS: 99213; C9803; G0463; U0003; U0005

== ENCOUNTER 2022-06-18 17:41 | Emergency (ER) | payer BC, SELFPAY ==
[2022-06-18 18:00] VITALS: BP 142/91; PULSE 76; RESP 18; TEMP 37; O2SAT 98; BMI 35.4
--- NOTE | 2022-06-18 18:15 | EXP.UTC ---
Discharge Plan Disposition Patient Disposition: Home, Self-Care Condition: Good Prescriptions Prescriptions: New azithromycin [Zithromax Z-Philip] 250 mg tablet See Rx Instructions .ROUTE .COMPLEX 5 Days Qty: 6 0RF Rx Instructions: For 250 mg dose pack: take 500 mg today (day 1), then 250 mg for 4 days (days 2-5) methylprednisolone [Medrol (Philip)] 4 mg tablets,dose pack See Rx Instructions .Route .COMPLEX 6 Days Qty: 21 0RF Rx Instructions: taper pack; No Action calcium citrate-vitamin D3 315 mg- 250 unit tablet 1 tab PO DAILY omega-3 fatty acids 1,000 mg capsule 1,000 mg PO DAILY ciclopirox 0.77 % gel 1 applic TOPICAL ONCE 90 Days Qty: 30 2RF aspirin [Adult Low Dose Aspirin] 81 mg tablet,delayed release (DR/EC) 81 mg PO DAILY hydroxychloroquine 200 mg tablet 200 mg PO BID rifampin 300 mg capsule 300 mg PO DAILY ondansetron 4 MG tablet,disintegrating 4 mg PO Q8HP PRN (Reason: Nausea) Qty: 12 0RF clindamycin HCl 300 MG capsule 300 mg PO TID 10 Days Qty: 30 0RF promethazine-DM 120 ML syrup 5 ml PO Q6HP PRN (Reason: Cough) Qty: 240 0RF ondansetron 4 MG tablet,disintegrating 4 mg PO Q8HP PRN (Reason: Nausea) Qty: 20 0RF Referrals Follow up/Referrals: Hank Aguila MD [Primary Care Provider] - See instructions Activity Restrictions/Add. Instructions Additional Instructions/Restrictions: Take medication as prescribed Follow up with your Family Doctor or ENT if pain continues Return if needed Straight to ER if any life threatening symptoms Clinical Impressions Clinical Impression: Otitis media Instructions Patient Instructions: Middle Ear Infection, Middle Ear Infections (Alternative Therapy) Discharge ED Provider: Nancy Barclay [facility] [place] General Stated complaint: Right Earache Time Seen by Provider: 06/18/22 18:15 History of Present Illness Provider Complaint: Patient states that he recently had a sinus infection and was on antibitoics States that he sneezing and felt a pop in his ear and has been having pain in right ear ever since State that feels like it has fluid in it Related Data Home Medications Medication Instructions Recorded Confirmed aspirin 81 mg tablet,delayed 81 mg PO DAILY Heart disease 10/07/17 07/24/20 release (Adult Low Dose Aspirin) calcium citrate 315 mg 1 tab PO DAILY 12/22/18 07/24/20 calcium-vitamin D3 6.25 mcg (250 unit) tablet omega-3 fatty acids 1,000 mg 1,000 mg PO DAILY 12/22/18 07/24/20 capsule hydroxychloroquine 200 mg tablet 200 mg PO BID 04/27/19 07/24/20 rifampin 300 mg capsule 300 mg PO DAILY 04/27/19 07/24/20 Previous Rx's Medication Instructions Recorded ondansetron 4 mg disintegrating 4 mg PO Q8HP PRN Nausea ##12 06/26/20 tablet clindamycin HCl 300 mg capsule 300 mg PO TID 10 days #30 caps 07/12/20 ciclopirox 0.77 % topical gel 1 applic topical ONCE toenail 07/24/20 fungus 90 days #30 grams ondansetron 4 mg disintegrating 4 mg PO Q8HP PRN Nausea #20 tabs 09/27/21 tablet promethazine-DM 6.25 mg-15 mg/5 mL 5 ml PO Q6HP PRN Cough #240 mL 09/27/21 oral syrup azithromycin 250 mg tablet See Rx Instructions PO .COMPLEX 5 06/18/22 (Zithromax Z-Philip) days #6 tabs methylprednisolone 4 mg tablets in See Rx Instructions .Route 06/18/22 a dose pack (Medrol (Philip)) .COMPLEX 6 days #21 tabs Allergies Allergy/AdvReac Type Severity Reaction Status Date / Time Penicillins Allergy Intermediate I-ITCHING Verified 07/24/20 11:08 Pertussis Vaccines Allergy Intermediate FLUSHING Verified 07/24/20 11:08 aspirin Allergy Verified 07/24/20 11:08 [facility] Medical History (Updated 06/18/22 @ 18:30 by Nancy Barclay APRN) Hyperlipidemia Hypertension Surgical History (Updated 06/18/22 @ 18:15 by Yuliya Cao RN) History of back surgery History of tonsillectomy Social History (Updated 06/18/22 @ 18:15 by Yuliya Cao RN) Smoking Status: C
[2022-06-18 18:35] VITALS: BP 142/91; PULSE 76; RESP 18; TEMP 37; O2SAT 98
== END 2022-06-18 18:38 | disposition home or self-care (01) ==
PROVIDERS: Emergency Provider Nurse Practitioner; PCP Internal Medicine Adolescent Medicine
DX: H92.01 Otalgia, right ear (principal); R11.0 Nausea; I10 Essential (primary) hypertension; E78.5 Hyperlipidemia, unspecified; F17.210 Nicotine dependence, cigarettes, uncomplicated; Z79.52 Long term (current) use of systemic steroids; Z79.82 Long term (current) use of aspirin; Z79.899 Other long term (current) drug therapy; Z88.0 Allergy status to penicillin; Z88.6 Allergy status to analgesic agent; Z88.7 Allergy status to serum and vaccine
CPT/HCPCS: 99213; G0463